=== PATIENT | female | born 1965 | race Caucasian/White ===

== ENCOUNTER 2016-12-05 10:13 | Emergency (ER) | payer BC ==
[~2016-12-05] VITALS: Ht 167.6 cm; Wt 96.2 kg
[2016-12-05 10:15] VITALS: BP 137/84
== END 2016-12-05 11:23 | disposition home or self-care (01) ==
LOC: ED 10:30
DX: H33.22 Serous retinal detachment, left eye (principal)
CPT/HCPCS: 99282